=== PATIENT | female | born 1985 | race Caucasian/White ===

== ENCOUNTER 2022-10-26 21:00 | Emergency (ER) | payer OTHER ==
[2022-10-26 21:05] VITALS: BP 130/91; PULSE 85; RESP 18; TEMP 97.6; BMI 30.1
[2022-10-26] MEDS ORDERED: ACETAMINOPHEN 325 MG TABLET (FP) PO ONE (21:38)
[2022-10-26] MEDS ORDERED: LIDOCAINE 5% TOPICAL PATCH TP ONE (21:48)
[2022-10-26 21:52] LABS: URINE APPEARANCE CLEAR; URINE BILIRUBIN NEGATIVE (NEGATIVE); URINE COLOR YELLOW; URINE GLUCOSE (UA) NEGATIVE (NEGATIVE); URINE KETONE NEGATIVE (NEGATIVE); URINE LEUK ESTERASE NEGATIVE (NEGATIVE); URINE NITRITE NEGATIVE (NEGATIVE); URINE PROTEIN NEGATIVE (NEGATIVE)
[2022-10-26] MEDS ORDERED: LIDOCAINE 5% TOPICAL PATCH ONE (22:03)
[2022-10-27] MEDS ORDERED: LIDOCAINE PATCH REMOVAL MC SCH (10:00)
== END 2022-10-26 22:57 | disposition home or self-care (01) ==
LOC: JER 21:00
DX: R10.12 Left upper quadrant pain (principal); R07.81 Pleurodynia
CPT/HCPCS: 71046-TC-FY; 81003; 87086; 99284-25